=== PATIENT | female | born 1955 | race Two or more races ===

== ENCOUNTER 2021-01-18 14:03 | Inpatient (IN) | payer OTHER ==
[~2021-01-18] VITALS: Ht 162.6 cm; Wt 97.8 kg
[2021-01-18] MEDS ORDERED: cefTRIAXone 1GM/50ML D5W 50 ML IV ONE (14:15)
[2021-01-18] MEDS ORDERED: ACETAMINOPHEN 325 MG TAB PO ONE (14:45)
[2021-01-18 15:21] LABS: Urine Bacteria FEW /hpf (None Seen); Urine Blood TRACE /uL (Negative); Urine Hyaline Cast FEW /lpf (0 - 2); Urine Specific Gravity 1.015 (1.001-1.035); Urine WBC 12 /hpf (0 - 5)
[2021-01-18 15:25] LABS: Basophils # (auto) 0 10 ^3/uL (0-0.2); Basophils % (auto) 0.1 % (0.0-2.0); Eosinophils # (auto) 0 10 ^3/uL (0-0.8); Hematocrit 33.1 % (36.0-46.0); Lymphocytes # (auto) 0.6 10 ^3/uL (0.4-5.4); Lymphocytes % (auto) 10.1 % (10.0-50.0); Mean Corpuscular Hemoglobin 31.3 pg (28.0-32.0); Mean Corpuscular Hgb Conc. 36.2 g/dL (32.0-36.0); Mean Corpuscular Volume 86.4 fL (80.0-100.0); Monocytes # (auto) 0.4 10 ^3/uL (0-1.3); Monocytes % (auto) 7.2 % (0.0-12.0); Neutrophils # (auto) 4.8 10 ^3/uL (1.6-8.6); Neutrophils % (auto) 82.6 % (37.0-80.0); Red Blood Cells 3.83 10^6/uL (4.0-5.20); White Blood Cell 5.9 10^3/uL (4.4-10.8)
[2021-01-18 15:38] LABS: Albumin 2.8 g/dL (3.4-5.0); Anion Gap 6 (5-15); Blood Urea Nitrogen 42 mg/dL (7-18); Carbon Dioxide 25 mmol/L (21-32); Chloride 99 mmol/L (98-107); Glucose 122 mg/dL (74-106); Magnesium 2.4 mg/dL (1.6-2.6); Potassium 4.3 mmol/L (3.5-5.1); Sodium 130 mmol/L (136-145)
[2021-01-18 15:46] LABS: Alanine Aminotransferase 28 U/L (13-56); Alkaline Phosphatase 70 U/L (45-117); Aspartate Aminotransferase 32 U/L (15-37); BUN/Creatinine Ratio 29.6; Bilirubin, Total 0.4 mg/dL (0.2-1.0); GFR African American 48 mL/min; GFR Non-African American 39 mL/min; Total Protein 7.2 g/dL (6.4-8.2)
[2021-01-18] MEDS ORDERED: DexAMETHasone SOD PHOS 10MG/1ML VIAL INJ IV ONE (16:45)
[2021-01-18] MEDS ORDERED: ASCORBIC ACID 500 MG TAB PO ONE (16:45)
[2021-01-18] MEDS ORDERED: ZINC SULFATE 220mg CAP or TAB PO ONE (16:45)
[2021-01-18] MEDS ORDERED: hydrALAZINE HCL 20 MG/ML VL IV PRN (18:30)
[2021-01-18] MEDS ORDERED: SODIUM CHLORIDE 0.9% 500 ML IV ONE (18:30)
[2021-01-18] MEDS ORDERED: ONDANSETRON HCL 4 MG/2 ML VIAL IV PRN (18:30)
[2021-01-18] MEDS ORDERED: NITROGLYCERIN 0.4 MG SL TAB SL PRN (18:30)
[2021-01-18] MEDS ORDERED: DOCUSATE CALCIUM 240 MG CAP PO PRN (18:30)
[2021-01-18] MEDS ORDERED: MORPHINE SULFATE INJECTION 2 MG/ML SYRG IV PRN (18:30)
[2021-01-18] MEDS ORDERED: DEXTROSE (50%) 50ML SYRG IV PRN (18:30)
[2021-01-18] MEDS ORDERED: DOXYCYCLINE 100MG/250ML 250 ML IV SCH (18:45)
[2021-01-18 20:40] VITALS: BP 127/62
[2021-01-18] MEDS: ENOXAPARIN SOD 40 MG/0.4 ML SYRINGE SC SCH (21:22)
[2021-01-18] MEDS ORDERED: INSULIN LANTUS (GLARGINE) 1 /0.01ml (100units/ml) SC SCH (22:00)
[2021-01-18 22:20] VITALS: BP 127/62
[2021-01-18] MEDS: ACCU-CHEK COMFORT CURVE STRIP VI SCH (22:33)
[2021-01-18] MEDS: InsuLIN REG 1unit/0.01ml Soln (100units/ml) SC SCH (22:37)
[2021-01-18] MEDS ORDERED: LORA0.5T20 PO (23:25)
[2021-01-18 23:42] VITALS: BP 130/67
[2021-01-18] MEDS: MORPHINE SULFATE INJECTION 2 MG/ML SYRG IV PRN (23:58)
[2021-01-19] VITALS (15 sets, daily range): BP systolic 109–158; BP diastolic 47–72
[2021-01-19] MEDS: ACETAMINOPHEN 500 MG TAB PO PRN (00:05)
[2021-01-19] MEDS: ACCU-CHEK COMFORT CURVE STRIP VI SCH ×4 (01:12→20:57)
[2021-01-19] MEDS: InsuLIN REG 1unit/0.01ml Soln (100units/ml) SC SCH ×4 (01:15→20:58)
[2021-01-19] MEDS: IPRATROPIUM BROMIDE HFA AER IN SCH ×5 (06:21→22:02)
[2021-01-19] MEDS: BUDESONIDE (INHALATION) 180 MCG IH IN SCH ×3 (06:21→22:02)
[2021-01-19] MEDS: ALBUTEROL SULF HFA 90MCG INH 200DOSE IN PRN ×3 (06:21→22:02)
[2021-01-19 06:30] LABS: Basophils # (auto) 0 10 ^3/uL (0-0.2); Basophils % (auto) 0.3 % (0.0-2.0); Eosinophils # (auto) 0 10 ^3/uL (0-0.8); Hemoglobin 12.8 g/dL (12.2-16.2); Lymphocytes # (auto) 0.5 10 ^3/uL (0.4-5.4); Lymphocytes % (auto) 9.4 % (10.0-50.0); Mean Corpuscular Hemoglobin 30.9 pg (28.0-32.0); Mean Corpuscular Hgb Conc. 34.5 g/dL (32.0-36.0); Mean Corpuscular Volume 89.6 fL (80.0-100.0); Monocytes # (auto) 0.3 10 ^3/uL (0-1.3); Monocytes % (auto) 6.6 % (0.0-12.0); Neutrophils # (auto) 4.4 10 ^3/uL (1.6-8.6); Neutrophils % (auto) 83.7 % (37.0-80.0); Red Blood Cells 4.13 10^6/uL (4.0-5.20); Red Cell Distribution Width 14.3 % (11.8-14.3); White Blood Cell 5.2 10^3/uL (4.4-10.8)
[2021-01-19 06:45] LABS: Albumin 2.8 g/dL (3.4-5.0); BUN/Creatinine Ratio 30.5; Potassium 4.6 mmol/L (3.5-5.1)
[2021-01-19 06:48] LABS: Bilirubin, Total 0.4 mg/dL (0.2-1.0); Total Protein 7.3 g/dL (6.4-8.2)
[2021-01-19 07:26] LABS: INR 0.97 (0.9-1.15)
[2021-01-19] MEDS ORDERED: REMDESIVIR PER PHARMACY 0 ML IV SCH (08:45)
[2021-01-19 08:54] LABS: Magnesium 2.2 mg/dL (1.6-2.6); Phosphorus 2.1 mg/dL (2.5-4.90)
[2021-01-19] MEDS: DOXYCYCLINE 100MG/250ML 250 ML IV SCH ×2 (08:55→20:59)
[2021-01-19] MEDS: guaiFENesin-DM 100/10mg/5ml SYR PO PRN ×3 (08:55→21:02)
[2021-01-19] MEDS ORDERED: InsuLIN REG 1unit/0.01ml Soln (100units/ml) SC SCH (10:00)
[2021-01-19] MEDS ORDERED: ACCU-CHEK COMFORT CURVE STRIP VI SCH (10:00)
[2021-01-19] MEDS ORDERED: metroNIDAZOLE 500 MG TAB PO ONE (10:30)
[2021-01-19] MEDS ORDERED: cefTRIAXone 1GM/50ML D5W 50 ML IV ONE (10:30)
[2021-01-19] MEDS: DexAMETHasone SOD PHOS 10MG/1ML VIAL INJ IV SCH (11:38)
[2021-01-19] MEDS: PANTOPRAZOLE 40 MG TAB PO SCH (11:38)
[2021-01-19] MEDS: TOCILIZUMAB 400 MG in SODIUM CHL 0.9% 80 ML IV SCH (11:38)
[2021-01-19] MEDS: ZINC SULFATE 220mg CAP or TAB PO SCH (11:38)
[2021-01-19] MEDS: CHOLECALCIFEROL (VITD3) 2,000 UNIT CAP/TAB PO SCH (11:39)
[2021-01-19] MEDS: ENOXAPARIN SOD 40 MG/0.4 ML SYRINGE SC SCH ×2 (11:39→21:01)
[2021-01-19] MEDS: ASCORBIC ACID 1,000 MG TAB PO SCH (11:39)
[2021-01-19] MEDS: LORazepam 0.5 MG TAB PO PRN ×2 (11:40→22:51)
[2021-01-19] MEDS ORDERED: INSULIN LANTUS (GLARGINE) 1 /0.01ml (100units/ml) SC ONE (12:15)
[2021-01-19] MEDS ORDERED: REMDESIVIR 200 MG in NS 210ml LOADING DOSE ADULT IV ONE (15:00)
[2021-01-19] MEDS: metroNIDAZOLE 500 MG TAB PO SCH (15:49)
[2021-01-19] MEDS: INSULIN LANTUS (GLARGINE) 1 /0.01ml (100units/ml) SC SCH (21:00)
[2021-01-20] VITALS (28 sets, daily range): BP systolic 94–168; BP diastolic 31–85
[2021-01-20] MEDS: LORazepam 0.5 MG TAB PO PRN ×2 (00:15→17:02)
[2021-01-20] MEDS: InsuLIN REG 1unit/0.01ml Soln (100units/ml) SC SCH ×6 (00:55→20:12)
[2021-01-20] MEDS: metroNIDAZOLE 500 MG TAB PO SCH ×4 (01:26→17:02)
[2021-01-20] MEDS: ACCU-CHEK COMFORT CURVE STRIP VI SCH ×6 (04:00→20:12)
[2021-01-20] MEDS: MORPHINE SULFATE INJECTION 2 MG/ML SYRG IV PRN (04:20)
[2021-01-20 04:31] LABS: Albumin 2.7 g/dL (3.4-5.0); Calcium 8.3 mg/dL (8.5-10.1); Potassium 4.4 mmol/L (3.5-5.1)
[2021-01-20 04:40] LABS: Bilirubin, Total 0.3 mg/dL (0.2-1.0); CRP High Sensitivity 8.07 mg/dL (< 0.3); Total Protein 6.9 g/dL (6.4-8.2)
[2021-01-20] MEDS: INSULIN LANTUS (GLARGINE) 1 /0.01ml (100units/ml) SC SCH ×2 (06:45→22:31)
[2021-01-20] MEDS: BUDESONIDE (INHALATION) 180 MCG IH IN SCH ×3 (06:53→22:03)
[2021-01-20] MEDS: ALBUTEROL SULF HFA 90MCG INH 200DOSE IN PRN ×3 (06:53→22:03)
[2021-01-20] MEDS: IPRATROPIUM BROMIDE HFA AER IN SCH ×4 (06:53→22:02)
[2021-01-20] MEDS: cefTRIAXone 1GM/50ML D5W 50 ML IV SCH (09:24)
[2021-01-20] MEDS: PANTOPRAZOLE 40 MG TAB PO SCH (10:16)
[2021-01-20] MEDS: CHOLECALCIFEROL (VITD3) 2,000 UNIT CAP/TAB PO SCH (10:16)
[2021-01-20] MEDS: ASCORBIC ACID 1,000 MG TAB PO SCH (10:16)
[2021-01-20] MEDS: ZINC SULFATE 220mg CAP or TAB PO SCH (10:16)
[2021-01-20] MEDS: ENOXAPARIN SOD 40 MG/0.4 ML SYRINGE SC SCH ×2 (10:16→22:30)
[2021-01-20] MEDS: DexAMETHasone SOD PHOS 10MG/1ML VIAL INJ IV SCH (10:16)
[2021-01-20] MEDS: DOXYCYCLINE 100MG/250ML 250 ML IV SCH ×2 (10:17→20:27)
[2021-01-20] MEDS ORDERED: ENALAPRILAT 1.25 MG/ML-1ML VIAL IV PRN (10:45)
[2021-01-20] MEDS: TOCILIZUMAB 400 MG in SODIUM CHL 0.9% 80 ML IV SCH (13:15)
[2021-01-20] MEDS: REMDESIVIR 100mg 100 MG in SODIUM CHL 0.9% 230 ML IV SCH (14:57)
[2021-01-20] MEDS: ENALAPRIL MALEATE 2.5 MG TAB PO SCH (21:23)
[2021-01-20] MEDS: guaiFENesin-DM 100/10mg/5ml SYR PO PRN (22:41)
[2021-01-20] MEDS: ACETAMINOPHEN 500 MG TAB PO PRN (22:41)
[2021-01-21] VITALS (25 sets, daily range): BP systolic 90–151; BP diastolic 41–91
[2021-01-21] MEDS: ACCU-CHEK COMFORT CURVE STRIP VI SCH ×6 (00:08→21:00)
[2021-01-21] MEDS: InsuLIN REG 1unit/0.01ml Soln (100units/ml) SC SCH ×6 (00:08→20:59)
[2021-01-21] MEDS: metroNIDAZOLE 500 MG TAB PO SCH ×3 (02:40→18:36)
[2021-01-21] MEDS: LORazepam 0.5 MG TAB PO PRN (03:35)
[2021-01-21 04:35] LABS: Albumin 2.4 g/dL (3.4-5.0); Calcium 7.9 mg/dL (8.5-10.1); Potassium 4.8 mmol/L (3.5-5.1)
[2021-01-21 04:38] LABS: BUN/Creatinine Ratio 41.9
[2021-01-21 04:40] LABS: Bilirubin, Total 0.3 mg/dL (0.2-1.0); Total Protein 6.1 g/dL (6.4-8.2)
[2021-01-21] MEDS: INSULIN LANTUS (GLARGINE) 1 /0.01ml (100units/ml) SC SCH ×2 (06:00→22:24)
[2021-01-21] MEDS: BUDESONIDE (INHALATION) 180 MCG IH IN SCH ×2 (06:22→22:03)
[2021-01-21] MEDS: ALBUTEROL SULF HFA 90MCG INH 200DOSE IN PRN ×3 (06:22→22:03)
[2021-01-21] MEDS: IPRATROPIUM BROMIDE HFA AER IN SCH ×4 (06:22→22:03)
[2021-01-21] MEDS: cefTRIAXone 1GM/50ML D5W 50 ML IV SCH (09:09)
[2021-01-21] MEDS: DOXYCYCLINE 100MG/250ML 250 ML IV SCH ×2 (09:10→21:01)
[2021-01-21] MEDS: ENALAPRIL MALEATE 2.5 MG TAB PO SCH (10:00)
[2021-01-21] MEDS: DexAMETHasone SOD PHOS 10MG/1ML VIAL INJ IV SCH (10:46)
[2021-01-21] MEDS: PANTOPRAZOLE 40 MG TAB PO SCH (10:46)
[2021-01-21] MEDS: ZINC SULFATE 220mg CAP or TAB PO SCH (10:46)
[2021-01-21] MEDS: ENOXAPARIN SOD 40 MG/0.4 ML SYRINGE SC SCH ×2 (10:47→22:25)
[2021-01-21] MEDS: ASCORBIC ACID 1,000 MG TAB PO SCH (10:47)
[2021-01-21] MEDS: CHOLECALCIFEROL (VITD3) 2,000 UNIT CAP/TAB PO SCH (10:48)
[2021-01-21] MEDS: ACETAMINOPHEN 500 MG TAB PO PRN (12:22)
[2021-01-21] MEDS ORDERED: IVERMECTIN 3 MG TAB PO ONE (12:45)
[2021-01-21] MEDS: REMDESIVIR 100mg 100 MG in SODIUM CHL 0.9% 230 ML IV SCH (15:38)
[2021-01-22] VITALS (29 sets, daily range): BP systolic 110–154; BP diastolic 56–83
[2021-01-22] MEDS: ACETAMINOPHEN 500 MG TAB PO PRN ×2 (00:21→16:01)
[2021-01-22] MEDS: LORazepam 0.5 MG TAB PO PRN ×3 (00:21→22:47)
[2021-01-22] MEDS: InsuLIN REG 1unit/0.01ml Soln (100units/ml) SC SCH ×7 (01:24→23:53)
[2021-01-22] MEDS: ACCU-CHEK COMFORT CURVE STRIP VI SCH ×7 (01:24→23:52)
[2021-01-22] MEDS: metroNIDAZOLE 500 MG TAB PO SCH ×3 (01:25→18:15)
[2021-01-22 04:44] LABS: Albumin 2.1 g/dL (3.4-5.0); Calcium 7.2 mg/dL (8.5-10.1); Potassium 4.8 mmol/L (3.5-5.1)
[2021-01-22 04:48] LABS: BUN/Creatinine Ratio 11.2; Bilirubin, Total 0.4 mg/dL (0.2-1.0); Total Protein 6.2 g/dL (6.4-8.2)
[2021-01-22 04:52] LABS: Basophils # (auto) 0 10 ^3/uL (0-0.2); Basophils % (auto) 0.3 % (0.0-2.0); Eosinophils # (auto) 0 10 ^3/uL (0-0.8); Eosinophils % (auto) 0.1 % (0.0-7.0); Hemoglobin 12.6 g/dL (12.2-16.2); Lymphocytes # (auto) 0.9 10 ^3/uL (0.4-5.4); Lymphocytes % (auto) 11.4 % (10.0-50.0); Mean Corpuscular Hgb Conc. 35.2 g/dL (32.0-36.0); Mean Corpuscular Volume 88.1 fL (80.0-100.0); Monocytes # (auto) 0.7 10 ^3/uL (0-1.3); Monocytes % (auto) 8.6 % (0.0-12.0); Neutrophils # (auto) 6.2 10 ^3/uL (1.6-8.6); Neutrophils % (auto) 79.6 % (37.0-80.0); Nucleated Red Blood Cells % 0.1 %; Red Blood Cells 4.08 10^6/uL (4.0-5.20); White Blood Cell 7.8 10^3/uL (4.4-10.8)
[2021-01-22] MEDS: ALBUTEROL SULF HFA 90MCG INH 200DOSE IN PRN ×2 (05:58→22:43)
[2021-01-22] MEDS: IPRATROPIUM BROMIDE HFA AER IN SCH ×4 (05:58→22:43)
[2021-01-22] MEDS: BUDESONIDE (INHALATION) 180 MCG IH IN SCH ×2 (05:58→22:44)
[2021-01-22] MEDS: IVERMECTIN 3 MG TAB PO SCH (06:36)
[2021-01-22] MEDS: INSULIN LANTUS (GLARGINE) 1 /0.01ml (100units/ml) SC SCH ×2 (06:38→21:59)
[2021-01-22] MEDS: cefTRIAXone 1GM/50ML D5W 50 ML IV SCH (08:43)
[2021-01-22] MEDS: DexAMETHasone SOD PHOS 10MG/1ML VIAL INJ IV SCH (09:11)
[2021-01-22] MEDS: DOXYCYCLINE 100MG/250ML 250 ML IV SCH ×2 (09:11→21:27)
[2021-01-22] MEDS: ZINC SULFATE 220mg CAP or TAB PO SCH (09:12)
[2021-01-22] MEDS: PANTOPRAZOLE 40 MG TAB PO SCH (09:12)
[2021-01-22] MEDS: CHOLECALCIFEROL (VITD3) 2,000 UNIT CAP/TAB PO SCH (09:12)
[2021-01-22] MEDS: ASCORBIC ACID 1,000 MG TAB PO SCH (09:12)
[2021-01-22] MEDS: ENOXAPARIN SOD 40 MG/0.4 ML SYRINGE SC SCH ×2 (09:12→21:58)
[2021-01-22] MEDS: REMDESIVIR 100mg 100 MG in SODIUM CHL 0.9% 230 ML IV SCH (14:49)
[2021-01-22] MEDS: LOPERAMIDE HCL 2 MG CAP PO PRN (18:15)
[2021-01-22] MEDS: Glucerna Carbsteady SHAKE Vanilla 8oz PO SCH (18:16)
[2021-01-23] VITALS (27 sets, daily range): BP systolic 107–159; BP diastolic 55–86
[2021-01-23] MEDS: metroNIDAZOLE 500 MG TAB PO SCH ×3 (02:25→17:33)
[2021-01-23] MEDS: ACCU-CHEK COMFORT CURVE STRIP VI SCH ×5 (04:02→19:50)
[2021-01-23] MEDS: InsuLIN REG 1unit/0.01ml Soln (100units/ml) SC SCH ×5 (04:03→19:51)
[2021-01-23 04:33] LABS: Albumin 2.6 g/dL (3.4-5.0); BUN/Creatinine Ratio 34.7; Calcium 8.3 mg/dL (8.5-10.1); Potassium 4.4 mmol/L (3.5-5.1)
[2021-01-23 04:35] LABS: Bilirubin, Total 0.4 mg/dL (0.2-1.0)
[2021-01-23] MEDS: INSULIN LANTUS (GLARGINE) 1 /0.01ml (100units/ml) SC SCH ×2 (06:07→22:31)
[2021-01-23] MEDS: IVERMECTIN 3 MG TAB PO SCH (06:07)
[2021-01-23] MEDS: BUDESONIDE (INHALATION) 180 MCG IH IN SCH ×2 (07:11→19:35)
[2021-01-23] MEDS: IPRATROPIUM BROMIDE HFA AER IN SCH ×4 (07:11→22:59)
[2021-01-23] MEDS: ALBUTEROL SULF HFA 90MCG INH 200DOSE IN PRN ×2 (07:12→19:36)
[2021-01-23] MEDS: Glucerna Carbsteady SHAKE Vanilla 8oz PO SCH ×3 (08:02→17:33)
[2021-01-23] MEDS: cefTRIAXone 1GM/50ML D5W 50 ML IV SCH (08:02)
[2021-01-23] MEDS: DOXYCYCLINE 100MG/250ML 250 ML IV SCH ×2 (08:45→20:09)
[2021-01-23] MEDS: ASCORBIC ACID 1,000 MG TAB PO SCH (09:00)
[2021-01-23] MEDS: ENOXAPARIN SOD 40 MG/0.4 ML SYRINGE SC SCH ×2 (09:00→22:30)
[2021-01-23] MEDS: CHOLECALCIFEROL (VITD3) 2,000 UNIT CAP/TAB PO SCH (09:01)
[2021-01-23] MEDS: ZINC SULFATE 220mg CAP or TAB PO SCH (09:01)
[2021-01-23] MEDS: DexAMETHasone SOD PHOS 10MG/1ML VIAL INJ IV SCH (09:02)
[2021-01-23] MEDS: PANTOPRAZOLE 40 MG TAB PO SCH (09:02)
[2021-01-23] MEDS: REMDESIVIR 100mg 100 MG in SODIUM CHL 0.9% 230 ML IV SCH (15:05)
[2021-01-23] MEDS: LOPERAMIDE HCL 2 MG CAP PO PRN (18:05)
[2021-01-23] MEDS: ACETAMINOPHEN 500 MG TAB PO PRN (18:06)
[2021-01-23] MEDS: guaiFENesin-DM 100/10mg/5ml SYR PO PRN (22:00)
[2021-01-23] MEDS: LORazepam 0.5 MG TAB PO PRN (22:00)
[2021-01-24] VITALS (30 sets, daily range): BP systolic 119–156; BP diastolic 57–78
[2021-01-24] MEDS: metroNIDAZOLE 500 MG TAB PO SCH ×3 (02:17→18:23)
[2021-01-24] MEDS: InsuLIN REG 1unit/0.01ml Soln (100units/ml) SC SCH ×6 (04:00→20:53)
[2021-01-24] MEDS: ACCU-CHEK COMFORT CURVE STRIP VI SCH ×6 (04:39→20:52)
[2021-01-24] MEDS: IVERMECTIN 3 MG TAB PO SCH (06:26)
[2021-01-24] MEDS: ACETAMINOPHEN 500 MG TAB PO PRN (06:27)
[2021-01-24] MEDS: INSULIN LANTUS (GLARGINE) 1 /0.01ml (100units/ml) SC SCH ×2 (06:30→22:35)
[2021-01-24] MEDS: ALBUTEROL SULF HFA 90MCG INH 200DOSE IN PRN (08:44)
[2021-01-24] MEDS: BUDESONIDE (INHALATION) 180 MCG IH IN SCH (08:45)
[2021-01-24] MEDS: IPRATROPIUM BROMIDE HFA AER IN SCH ×3 (08:45→19:34)
[2021-01-24] MEDS: cefTRIAXone 1GM/50ML D5W 50 ML IV SCH (10:24)
[2021-01-24] MEDS: Glucerna Carbsteady SHAKE Vanilla 8oz PO SCH ×3 (10:24→18:23)
[2021-01-24] MEDS: DexAMETHasone SOD PHOS 10MG/1ML VIAL INJ IV SCH (10:25)
[2021-01-24] MEDS: DOXYCYCLINE 100MG/250ML 250 ML IV SCH ×2 (10:25→20:11)
[2021-01-24] MEDS: ZINC SULFATE 220mg CAP or TAB PO SCH (10:26)
[2021-01-24] MEDS: CHOLECALCIFEROL (VITD3) 2,000 UNIT CAP/TAB PO SCH (10:26)
[2021-01-24] MEDS: ASCORBIC ACID 1,000 MG TAB PO SCH (10:26)
[2021-01-24] MEDS: ENOXAPARIN SOD 40 MG/0.4 ML SYRINGE SC SCH ×2 (10:26→22:34)
[2021-01-24] MEDS ORDERED: POTASSIUM CHL 20 Meq TABLET PO ONE (10:45)
[2021-01-24] MEDS ORDERED: FUROSEMIDE 20 MG/2 ML VIAL IV ONE (10:45)
[2021-01-25] VITALS (27 sets, daily range): BP systolic 111–149; BP diastolic 29–74
[2021-01-25] MEDS: ACCU-CHEK COMFORT CURVE STRIP VI SCH ×5 (00:03→17:19)
[2021-01-25] MEDS: InsuLIN REG 1unit/0.01ml Soln (100units/ml) SC SCH ×5 (00:04→17:42)
[2021-01-25] MEDS: LORazepam 0.5 MG TAB PO PRN ×2 (00:05→17:19)
[2021-01-25] MEDS: ACETAMINOPHEN 500 MG TAB PO PRN ×2 (00:32→12:36)
[2021-01-25] MEDS: BUDESONIDE (INHALATION) 180 MCG IH IN SCH ×3 (00:50→18:06)
[2021-01-25] MEDS: IPRATROPIUM BROMIDE HFA AER IN SCH ×4 (00:50→18:06)
[2021-01-25] MEDS: ALBUTEROL SULF HFA 90MCG INH 200DOSE IN PRN ×3 (00:51→18:07)
[2021-01-25] MEDS: metroNIDAZOLE 500 MG TAB PO SCH ×3 (02:07→17:18)
[2021-01-25 05:12] LABS: Potassium 4.8 mmol/L (3.5-5.1)
[2021-01-25] MEDS: IVERMECTIN 3 MG TAB PO SCH (06:03)
[2021-01-25] MEDS: INSULIN LANTUS (GLARGINE) 1 /0.01ml (100units/ml) SC SCH ×2 (06:03→21:50)
[2021-01-25] MEDS: cefTRIAXone 1GM/50ML D5W 50 ML IV SCH (08:00)
[2021-01-25] MEDS: Glucerna Carbsteady SHAKE Vanilla 8oz PO SCH ×3 (08:00→17:19)
[2021-01-25] MEDS: DOXYCYCLINE 100MG/250ML 250 ML IV SCH ×2 (09:00→20:58)
[2021-01-25] MEDS: CHOLECALCIFEROL (VITD3) 2,000 UNIT CAP/TAB PO SCH (10:00)
[2021-01-25] MEDS: ZINC SULFATE 220mg CAP or TAB PO SCH (10:35)
[2021-01-25] MEDS: ASCORBIC ACID 1,000 MG TAB PO SCH (10:35)
[2021-01-25] MEDS: POTASSIUM CHL 20 Meq TABLET PO SCH (10:36)
[2021-01-25] MEDS: ENOXAPARIN SOD 40 MG/0.4 ML SYRINGE SC SCH ×2 (10:37→21:49)
[2021-01-25] MEDS: FUROSEMIDE 20 MG/2 ML VIAL IV SCH (10:37)
[2021-01-25] MEDS: DexAMETHasone SOD PHOS 10MG/1ML VIAL INJ IV SCH (10:37)
[2021-01-25] MEDS: LOPERAMIDE HCL 2 MG CAP PO PRN ×3 (12:35→17:26)
[2021-01-25] MEDS ORDERED: DEXTROSE (50%) 50ML SYRG IV PRN (13:00)
[2021-01-25] MEDS: traMADol HCL 50 MG TAB PO PRN (17:18)
[2021-01-26] VITALS (28 sets, daily range): BP systolic 116–159; BP diastolic 48–81
[2021-01-26] MEDS: LORazepam 0.5 MG TAB PO PRN ×2 (00:03→22:49)
[2021-01-26] MEDS: LOPERAMIDE HCL 2 MG CAP PO PRN (00:04)
[2021-01-26] MEDS: ACCU-CHEK COMFORT CURVE STRIP VI SCH ×4 (00:04→18:17)
[2021-01-26] MEDS: InsuLIN REG 1unit/0.01ml Soln (100units/ml) SC SCH ×4 (00:05→18:21)
[2021-01-26] MEDS: metroNIDAZOLE 500 MG TAB PO SCH ×2 (01:28→10:16)
[2021-01-26] MEDS: IPRATROPIUM BROMIDE HFA AER IN SCH ×5 (01:49→22:26)
[2021-01-26 05:03] LABS: Calcium 8.5 mg/dL (8.5-10.1); Potassium 4.7 mmol/L (3.5-5.1)
[2021-01-26 05:06] LABS: BUN/Creatinine Ratio 38.7
[2021-01-26] MEDS: INSULIN LANTUS (GLARGINE) 1 /0.01ml (100units/ml) SC SCH ×2 (06:13→22:49)
[2021-01-26] MEDS: ALBUTEROL SULF HFA 90MCG INH 200DOSE IN PRN ×4 (06:45→22:26)
[2021-01-26] MEDS: BUDESONIDE (INHALATION) 180 MCG IH IN SCH ×2 (06:45→19:05)
[2021-01-26] MEDS: cefTRIAXone 1GM/50ML D5W 50 ML IV SCH (08:19)
[2021-01-26] MEDS: Glucerna Carbsteady SHAKE Vanilla 8oz PO SCH ×3 (09:15→18:24)
[2021-01-26] MEDS: DOXYCYCLINE 100MG/250ML 250 ML IV SCH (09:16)
[2021-01-26] MEDS: DexAMETHasone SOD PHOS 10MG/1ML VIAL INJ IV SCH (10:15)
[2021-01-26] MEDS: FUROSEMIDE 20 MG/2 ML VIAL IV SCH ×2 (10:16→18:24)
[2021-01-26] MEDS: ZINC SULFATE 220mg CAP or TAB PO SCH (10:16)
[2021-01-26] MEDS: POTASSIUM CHL 20 Meq TABLET PO SCH (10:16)
[2021-01-26] MEDS: ASCORBIC ACID 1,000 MG TAB PO SCH (10:16)
[2021-01-26] MEDS: CHOLECALCIFEROL (VITD3) 2,000 UNIT CAP/TAB PO SCH (10:17)
[2021-01-26] MEDS: ENOXAPARIN SOD 40 MG/0.4 ML SYRINGE SC SCH ×2 (10:17→22:49)
[2021-01-26] MEDS: ACETAMINOPHEN 500 MG TAB PO PRN ×2 (11:52→22:50)
[2021-01-26] MEDS: POTASSIUM CHL 10 Meq TABLET PO SCH (22:48)
[2021-01-26] MEDS: guaiFENesin-DM 100/10mg/5ml SYR PO PRN (22:50)
[2021-01-27] VITALS (26 sets, daily range): BP systolic 106–148; BP diastolic 45–77
[2021-01-27] MEDS: InsuLIN REG 1unit/0.01ml Soln (100units/ml) SC SCH ×5 (02:32→23:00)
[2021-01-27 04:42] LABS: Potassium 4.8 mmol/L (3.5-5.1)
[2021-01-27 04:49] LABS: Albumin 2.5 g/dL (3.4-5.0); BUN/Creatinine Ratio 39.1; Bilirubin, Total 0.5 mg/dL (0.2-1.0); Calcium 8.8 mg/dL (8.5-10.1); Total Protein 6.3 g/dL (6.4-8.2)
[2021-01-27] MEDS: ACCU-CHEK COMFORT CURVE STRIP VI SCH ×5 (05:48→23:00)
[2021-01-27] MEDS: FUROSEMIDE 20 MG/2 ML VIAL IV SCH ×2 (06:48→19:00)
[2021-01-27] MEDS: INSULIN LANTUS (GLARGINE) 1 /0.01ml (100units/ml) SC SCH ×2 (06:58→21:50)
[2021-01-27] MEDS: BUDESONIDE (INHALATION) 180 MCG IH IN SCH ×2 (07:20→23:22)
[2021-01-27] MEDS: ALBUTEROL SULF HFA 90MCG INH 200DOSE IN PRN ×3 (07:20→23:23)
[2021-01-27] MEDS: IPRATROPIUM BROMIDE HFA AER IN SCH ×4 (07:20→23:23)
[2021-01-27] MEDS: POTASSIUM CHL 10 Meq TABLET PO SCH ×2 (10:19→21:48)
[2021-01-27] MEDS: Glucerna Carbsteady SHAKE Vanilla 8oz PO SCH ×3 (10:19→18:00)
[2021-01-27] MEDS: DexAMETHasone SOD PHOS 10MG/1ML VIAL INJ IV SCH (10:19)
[2021-01-27] MEDS: ASCORBIC ACID 1,000 MG TAB PO SCH (10:19)
[2021-01-27] MEDS: ZINC SULFATE 220mg CAP or TAB PO SCH (10:19)
[2021-01-27] MEDS: ENOXAPARIN SOD 40 MG/0.4 ML SYRINGE SC SCH ×2 (10:20→21:48)
[2021-01-27] MEDS: CHOLECALCIFEROL (VITD3) 2,000 UNIT CAP/TAB PO SCH (10:20)
[2021-01-27] MEDS ORDERED: DEXTROSE (50%) 50ML SYRG IV PRN (10:30)
[2021-01-27] MEDS: ACETAMINOPHEN 500 MG TAB PO PRN (15:26)
[2021-01-28] VITALS (26 sets, daily range): BP systolic 104–160; BP diastolic 53–78
[2021-01-28 04:51] LABS: Hemoglobin 13.8 g/dL (12.2-16.2); Mean Corpuscular Hemoglobin 30.7 pg (28.0-32.0); Mean Corpuscular Hgb Conc. 34.5 g/dL (32.0-36.0); Mean Corpuscular Volume 88.9 fL (80.0-100.0); White Blood Cell 10.8 10^3/uL (4.4-10.8)
[2021-01-28 05:08] LABS: Potassium 4.8 mmol/L (3.5-5.1)
[2021-01-28 05:11] LABS: Basophils % (manual) 0 (0.0-2.0); Blast Cells 0; Eosinophils % (manual) 0 (0-7); Metamyelocytes % 0; Myelocytes % 0; Promyelocytes % 0; Reactive Lymphocytes 0
[2021-01-28 05:14] LABS: Albumin 2.4 g/dL (3.4-5.0); Calcium 8.6 mg/dL (8.5-10.1)
[2021-01-28 05:26] LABS: Bilirubin, Total 0.5 mg/dL (0.2-1.0); Total Protein 6.3 g/dL (6.4-8.2)
[2021-01-28] MEDS: FUROSEMIDE 20 MG/2 ML VIAL IV SCH ×2 (05:27→08:08)
[2021-01-28] MEDS: ACCU-CHEK COMFORT CURVE STRIP VI SCH ×4 (05:28→23:02)
[2021-01-28] MEDS: InsuLIN REG 1unit/0.01ml Soln (100units/ml) SC SCH ×4 (05:28→23:02)
[2021-01-28] MEDS: ACETAMINOPHEN 500 MG TAB PO PRN (05:52)
[2021-01-28] MEDS: ALBUTEROL SULF HFA 90MCG INH 200DOSE IN PRN ×4 (06:30→21:46)
[2021-01-28] MEDS: IPRATROPIUM BROMIDE HFA AER IN SCH ×4 (06:30→21:46)
[2021-01-28] MEDS: BUDESONIDE (INHALATION) 180 MCG IH IN SCH ×2 (06:30→18:56)
[2021-01-28] MEDS: traMADol HCL 50 MG TAB PO PRN (06:31)
[2021-01-28] MEDS: INSULIN LANTUS (GLARGINE) 1 /0.01ml (100units/ml) SC SCH ×2 (06:33→21:06)
[2021-01-28 06:56] LABS: Band Neutrophils % (manual) 10; Lymphocytes % (manual) 7 (10.0-50.0); Monocytes % (manual) 7 (0-12)
[2021-01-28] MEDS: Glucerna Carbsteady SHAKE Vanilla 8oz PO SCH ×3 (08:00→18:00)
[2021-01-28] MEDS: DexAMETHasone SOD PHOS 10MG/1ML VIAL INJ IV SCH (08:08)
[2021-01-28] MEDS: ENOXAPARIN SOD 40 MG/0.4 ML SYRINGE SC SCH ×2 (08:08→21:05)
[2021-01-28] MEDS: CHOLECALCIFEROL (VITD3) 2,000 UNIT CAP/TAB PO SCH (08:08)
[2021-01-28] MEDS: ZINC SULFATE 220mg CAP or TAB PO SCH (08:08)
[2021-01-28] MEDS: ASCORBIC ACID 1,000 MG TAB PO SCH (08:08)
[2021-01-28] MEDS: POTASSIUM CHL 10 Meq TABLET PO SCH (08:10)
[2021-01-28] MEDS: LORazepam 0.5 MG TAB PO PRN ×2 (11:50→21:07)
[2021-01-28] MEDS ORDERED: CALCIUM CARB 500 MG CHEW TAB PO PRN (15:00)
[2021-01-28] MEDS ORDERED: PANTOPRAZOLE 40 MG/10 ML VIAL INJ IV ONE (15:30)
[2021-01-28] MEDS ORDERED: SALINE 0.65 % NASAL SPRAY 45ML BOTTLE EACHNOSTRI ONE (15:30)
[2021-01-28] MEDS: SALINE 0.65 % NASAL SPRAY 45ML BOTTLE EACHNOSTRI SCH (21:04)
[2021-01-29] VITALS (26 sets, daily range): BP systolic 101–147; BP diastolic 43–112
[2021-01-29 04:48] LABS: BUN/Creatinine Ratio 46.8; Calcium 9.1 mg/dL (8.5-10.1); Potassium 5.1 mmol/L (3.5-5.1)
[2021-01-29] MEDS: SALINE 0.65 % NASAL SPRAY 45ML BOTTLE EACHNOSTRI SCH ×4 (05:22→21:00)
[2021-01-29] MEDS: ACCU-CHEK COMFORT CURVE STRIP VI SCH ×4 (05:23→23:37)
[2021-01-29] MEDS: InsuLIN REG 1unit/0.01ml Soln (100units/ml) SC SCH ×4 (05:24→23:37)
[2021-01-29] MEDS: INSULIN LANTUS (GLARGINE) 1 /0.01ml (100units/ml) SC SCH ×2 (06:11→21:01)
[2021-01-29] MEDS: ALBUTEROL SULF HFA 90MCG INH 200DOSE IN PRN ×3 (06:44→19:35)
[2021-01-29] MEDS: BUDESONIDE (INHALATION) 180 MCG IH IN SCH ×2 (06:44→19:35)
[2021-01-29] MEDS: IPRATROPIUM BROMIDE HFA AER IN SCH ×4 (06:44→22:42)
[2021-01-29] MEDS: Glucerna Carbsteady SHAKE Vanilla 8oz PO SCH ×3 (08:00→18:00)
[2021-01-29] MEDS: PANTOPRAZOLE 40 MG/10 ML VIAL INJ IV SCH (09:38)
[2021-01-29] MEDS: ASCORBIC ACID 1,000 MG TAB PO SCH (09:38)
[2021-01-29] MEDS: ZINC SULFATE 220mg CAP or TAB PO SCH (09:39)
[2021-01-29] MEDS: CHOLECALCIFEROL (VITD3) 2,000 UNIT CAP/TAB PO SCH (09:39)
[2021-01-29] MEDS: ENOXAPARIN SOD 40 MG/0.4 ML SYRINGE SC SCH ×2 (09:39→21:01)
[2021-01-29] MEDS: POTASSIUM CHL 10 Meq TABLET PO SCH (09:40)
[2021-01-29] MEDS: DexAMETHasone SOD PHOS 10MG/1ML VIAL INJ IV SCH (09:40)
[2021-01-29] MEDS: LOPERAMIDE HCL 2 MG CAP PO PRN (09:42)
[2021-01-29] MEDS ORDERED: FUROSEMIDE 20 MG/2 ML VIAL IV SCH (10:00)
[2021-01-29] MEDS: guaiFENesin-DM 100/10mg/5ml SYR PO PRN (21:37)
[2021-01-29] MEDS: LORazepam 0.5 MG TAB PO PRN (22:04)
[2021-01-30] VITALS (29 sets, daily range): BP systolic 105–156; BP diastolic 49–86
[2021-01-30 04:17] LABS: Basophils # (auto) 0 10 ^3/uL (0-0.2); Basophils % (auto) 0.1 % (0.0-2.0); Eosinophils # (auto) 0 10 ^3/uL (0-0.8); Eosinophils % (auto) 0.4 % (0.0-7.0); Hematocrit 38.9 % (36.0-46.0); Hemoglobin 13.4 g/dL (12.2-16.2); Lymphocytes # (auto) 0.5 10 ^3/uL (0.4-5.4); Lymphocytes % (auto) 4.9 % (10.0-50.0); Mean Corpuscular Hemoglobin 30.6 pg (28.0-32.0); Mean Corpuscular Hgb Conc. 34.5 g/dL (32.0-36.0); Mean Corpuscular Volume 88.9 fL (80.0-100.0); Monocytes # (auto) 0.5 10 ^3/uL (0-1.3); Monocytes % (auto) 4.1 % (0.0-12.0); Neutrophils # (auto) 10.1 10 ^3/uL (1.6-8.6); Neutrophils % (auto) 90.5 % (37.0-80.0); Red Blood Cells 4.38 10^6/uL (4.0-5.20); Red Cell Distribution Width 14.4 % (11.8-14.3); White Blood Cell 11.1 10^3/uL (4.4-10.8)
[2021-01-30 04:33] LABS: BUN/Creatinine Ratio 37.3; Calcium 8.8 mg/dL (8.5-10.1); Potassium 4.7 mmol/L (3.5-5.1)
[2021-01-30] MEDS: InsuLIN REG 1unit/0.01ml Soln (100units/ml) SC SCH ×3 (05:16→17:56)
[2021-01-30] MEDS: ACCU-CHEK COMFORT CURVE STRIP VI SCH ×3 (05:16→17:56)
[2021-01-30] MEDS: SALINE 0.65 % NASAL SPRAY 45ML BOTTLE EACHNOSTRI SCH ×4 (05:16→21:57)
[2021-01-30] MEDS: BUDESONIDE (INHALATION) 180 MCG IH IN SCH ×2 (06:08→23:04)
[2021-01-30] MEDS: ALBUTEROL SULF HFA 90MCG INH 200DOSE IN PRN ×2 (06:08→23:04)
[2021-01-30] MEDS: IPRATROPIUM BROMIDE HFA AER IN SCH ×4 (06:09→23:03)
[2021-01-30] MEDS: INSULIN LANTUS (GLARGINE) 1 /0.01ml (100units/ml) SC SCH ×2 (06:13→22:00)
[2021-01-30] MEDS: Glucerna Carbsteady SHAKE Vanilla 8oz PO SCH ×3 (07:35→15:18)
[2021-01-30] MEDS: PANTOPRAZOLE 40 MG/10 ML VIAL INJ IV SCH (08:42)
[2021-01-30] MEDS: DexAMETHasone SOD PHOS 10MG/1ML VIAL INJ IV SCH (08:42)
[2021-01-30] MEDS: ASCORBIC ACID 1,000 MG TAB PO SCH (08:43)
[2021-01-30] MEDS: ENOXAPARIN SOD 40 MG/0.4 ML SYRINGE SC SCH (08:43)
[2021-01-30] MEDS: ZINC SULFATE 220mg CAP or TAB PO SCH (08:43)
[2021-01-30] MEDS: CHOLECALCIFEROL (VITD3) 2,000 UNIT CAP/TAB PO SCH (08:43)
[2021-01-30] MEDS: POTASSIUM CHL 10 Meq TABLET PO SCH (08:43)
[2021-01-30] MEDS: LORazepam 0.5 MG TAB PO PRN ×2 (08:44→23:48)
[2021-01-30] MEDS ORDERED: LORazepam 0.5 MG TAB PO PRN (15:00)
[2021-01-30] MEDS ORDERED: FUROSEMIDE 20 MG/2 ML VIAL IV ONE (15:00)
[2021-01-30] MEDS ORDERED: FUROSEMIDE 20 MG/2 ML VIAL ONE (15:01)
[2021-01-30] MEDS: LINEZOLID 600MG/300ML 300 ML IV SCH (21:56)
[2021-01-30] MEDS: ENOXAPARIN SOD 100 MG/1 ML SYRINGE SC SCH (21:57)
[2021-01-31] VITALS (24 sets, daily range): BP systolic 94–152; BP diastolic 45–91
[2021-01-31] MEDS: ACCU-CHEK COMFORT CURVE STRIP VI SCH ×4 (00:04→18:00)
[2021-01-31] MEDS: InsuLIN REG 1unit/0.01ml Soln (100units/ml) SC SCH ×4 (00:08→18:00)
[2021-01-31] MEDS: SALINE 0.65 % NASAL SPRAY 45ML BOTTLE EACHNOSTRI SCH ×4 (06:19→22:00)
[2021-01-31] MEDS: INSULIN LANTUS (GLARGINE) 1 /0.01ml (100units/ml) SC SCH ×2 (06:24→22:40)
[2021-01-31] MEDS: ALBUTEROL SULF HFA 90MCG INH 200DOSE IN PRN (07:10)
[2021-01-31] MEDS: IPRATROPIUM BROMIDE HFA AER IN SCH ×3 (07:10→13:50)
[2021-01-31] MEDS: BUDESONIDE (INHALATION) 180 MCG IH IN SCH (07:10)
[2021-01-31] MEDS: Glucerna Carbsteady SHAKE Vanilla 8oz PO SCH ×3 (08:20→18:00)
[2021-01-31] MEDS: LINEZOLID 600MG/300ML 300 ML IV SCH ×2 (10:00→22:26)
[2021-01-31] MEDS: DexAMETHasone SOD PHOS 10MG/1ML VIAL INJ IV SCH (10:05)
[2021-01-31] MEDS: ENOXAPARIN SOD 100 MG/1 ML SYRINGE SC SCH ×2 (10:06→22:26)
[2021-01-31] MEDS: ASCORBIC ACID 1,000 MG TAB PO SCH (10:06)
[2021-01-31] MEDS: POTASSIUM CHL 10 Meq TABLET PO SCH (10:06)
[2021-01-31] MEDS: ZINC SULFATE 220mg CAP or TAB PO SCH (10:06)
[2021-01-31] MEDS: PANTOPRAZOLE 40 MG/10 ML VIAL INJ IV SCH (10:06)
[2021-01-31] MEDS: CHOLECALCIFEROL (VITD3) 2,000 UNIT CAP/TAB PO SCH (10:06)
[2021-01-31] MEDS: guaiFENesin-DM 100/10mg/5ml SYR PO PRN ×2 (13:41→20:40)
[2021-01-31] MEDS: LOPERAMIDE HCL 2 MG CAP PO PRN (18:00)
[2021-02-01] VITALS (28 sets, daily range): BP systolic 91–145; BP diastolic 57–89
[2021-02-01] MEDS: IPRATROPIUM BROMIDE HFA AER IN SCH ×5 (00:26→22:20)
[2021-02-01] MEDS: BUDESONIDE (INHALATION) 180 MCG IH IN SCH ×3 (00:26→22:20)
[2021-02-01] MEDS: guaiFENesin-DM 100/10mg/5ml SYR PO PRN ×3 (04:48→22:13)
[2021-02-01] MEDS: ACETAMINOPHEN 500 MG TAB PO PRN (04:49)
[2021-02-01 04:58] LABS: Basophils # (auto) 0 10 ^3/uL (0-0.2); Basophils % (auto) 0.1 % (0.0-2.0); Eosinophils # (auto) 0.1 10 ^3/uL (0-0.8); Eosinophils % (auto) 0.9 % (0.0-7.0); Hematocrit 41.7 % (36.0-46.0); Hemoglobin 14.3 g/dL (12.2-16.2); Lymphocytes # (auto) 0.5 10 ^3/uL (0.4-5.4); Lymphocytes % (auto) 4.3 % (10.0-50.0); Mean Corpuscular Hemoglobin 30.6 pg (28.0-32.0); Mean Corpuscular Hgb Conc. 34.3 g/dL (32.0-36.0); Mean Corpuscular Volume 89.2 fL (80.0-100.0); Monocytes # (auto) 0.4 10 ^3/uL (0-1.3); Monocytes % (auto) 3.6 % (0.0-12.0); Neutrophils % (auto) 91.1 % (37.0-80.0); Red Blood Cells 4.68 10^6/uL (4.0-5.20); Red Cell Distribution Width 14.8 % (11.8-14.3); White Blood Cell 10.9 10^3/uL (4.4-10.8)
[2021-02-01 05:17] LABS: Potassium 4.5 mmol/L (3.5-5.1)
[2021-02-01 05:32] LABS: Albumin 2.6 g/dL (3.4-5.0); BUN/Creatinine Ratio 55.6; Bilirubin, Total 0.6 mg/dL (0.2-1.0); Calcium 8.9 mg/dL (8.5-10.1); Total Protein 6.7 g/dL (6.4-8.2)
[2021-02-01] MEDS: SALINE 0.65 % NASAL SPRAY 45ML BOTTLE EACHNOSTRI SCH ×4 (06:00→22:00)
[2021-02-01] MEDS: ALBUTEROL SULF HFA 90MCG INH 200DOSE IN PRN (06:07)
[2021-02-01] MEDS: ACCU-CHEK COMFORT CURVE STRIP VI SCH ×5 (06:44→23:46)
[2021-02-01] MEDS: INSULIN LANTUS (GLARGINE) 1 /0.01ml (100units/ml) SC SCH ×2 (06:45→22:40)
[2021-02-01] MEDS: InsuLIN REG 1unit/0.01ml Soln (100units/ml) SC SCH ×5 (06:45→23:46)
[2021-02-01] MEDS: Glucerna Carbsteady SHAKE Vanilla 8oz PO SCH ×3 (08:30→18:30)
[2021-02-01] MEDS: ENOXAPARIN SOD 100 MG/1 ML SYRINGE SC SCH ×2 (10:00→22:25)
[2021-02-01] MEDS: ASCORBIC ACID 1,000 MG TAB PO SCH (10:00)
[2021-02-01] MEDS: ZINC SULFATE 220mg CAP or TAB PO SCH (10:00)
[2021-02-01] MEDS: POTASSIUM CHL 10 Meq TABLET PO SCH (10:00)
[2021-02-01] MEDS: LINEZOLID 600MG/300ML 300 ML IV SCH (10:00)
[2021-02-01] MEDS: PANTOPRAZOLE 40 MG/10 ML VIAL INJ IV SCH (10:00)
[2021-02-01] MEDS: DexAMETHasone SOD PHOS 10MG/1ML VIAL INJ IV SCH (10:00)
[2021-02-01] MEDS: CHOLECALCIFEROL (VITD3) 2,000 UNIT CAP/TAB PO SCH (12:00)
[2021-02-01] MEDS ORDERED: IBUPROFEN 400 MG TAB PO PRN (12:00)
[2021-02-01] MEDS ORDERED: IBUPROFEN 800 MG TAB PO ONE (12:48)
[2021-02-01] MEDS: LORazepam 0.5 MG TAB PO PRN (16:06)
[2021-02-01] MEDS: MEROPENEM 1GM IVPB 100 ML IV SCH ×2 (16:08→23:46)
[2021-02-02] VITALS (22 sets, daily range): BP systolic 110–146; BP diastolic 59–84
[2021-02-02 04:43] LABS: Basophils # (auto) 0 10 ^3/uL (0-0.2); Basophils % (auto) 0.2 % (0.0-2.0); Eosinophils # (auto) 0 10 ^3/uL (0-0.8); Eosinophils % (auto) 0.2 % (0.0-7.0); Hematocrit 39.6 % (36.0-46.0); Lymphocytes # (auto) 0.5 10 ^3/uL (0.4-5.4); Lymphocytes % (auto) 5.7 % (10.0-50.0); Mean Corpuscular Hgb Conc. 35.4 g/dL (32.0-36.0); Mean Corpuscular Volume 87.6 fL (80.0-100.0); Monocytes # (auto) 0.3 10 ^3/uL (0-1.3); Monocytes % (auto) 3.6 % (0.0-12.0); Neutrophils # (auto) 7.1 10 ^3/uL (1.6-8.6); Neutrophils % (auto) 90.3 % (37.0-80.0); Red Blood Cells 4.52 10^6/uL (4.0-5.20); Red Cell Distribution Width 14.4 % (11.8-14.3); White Blood Cell 7.9 10^3/uL (4.4-10.8)
[2021-02-02 04:59] LABS: Potassium 4.8 mmol/L (3.5-5.1)
[2021-02-02 05:07] LABS: Albumin 2.3 g/dL (3.4-5.0); Bilirubin, Total 0.7 mg/dL (0.2-1.0); Calcium 8.7 mg/dL (8.5-10.1); Total Protein 6.5 g/dL (6.4-8.2)
[2021-02-02] MEDS: SALINE 0.65 % NASAL SPRAY 45ML BOTTLE EACHNOSTRI SCH ×4 (05:58→21:39)
[2021-02-02] MEDS: ACCU-CHEK COMFORT CURVE STRIP VI SCH ×4 (05:59→23:24)
[2021-02-02] MEDS: InsuLIN REG 1unit/0.01ml Soln (100units/ml) SC SCH ×4 (05:59→23:25)
[2021-02-02] MEDS: INSULIN LANTUS (GLARGINE) 1 /0.01ml (100units/ml) SC SCH ×2 (05:59→21:40)
[2021-02-02] MEDS: MEROPENEM 1GM IVPB 100 ML IV SCH ×3 (06:00→23:24)
[2021-02-02] MEDS: ALBUTEROL SULF HFA 90MCG INH 200DOSE IN PRN ×2 (06:51→12:16)
[2021-02-02] MEDS: IPRATROPIUM BROMIDE HFA AER IN SCH ×4 (06:53→21:47)
[2021-02-02] MEDS: BUDESONIDE (INHALATION) 180 MCG IH IN SCH ×2 (06:55→21:47)
[2021-02-02] MEDS: CHOLECALCIFEROL (VITD3) 2,000 UNIT CAP/TAB PO SCH (08:29)
[2021-02-02] MEDS: ASCORBIC ACID 1,000 MG TAB PO SCH (08:30)
[2021-02-02] MEDS: ZINC SULFATE 220mg CAP or TAB PO SCH (08:30)
[2021-02-02] MEDS: POTASSIUM CHL 10 Meq TABLET PO SCH (08:31)
[2021-02-02] MEDS: PANTOPRAZOLE 40 MG/10 ML VIAL INJ IV SCH (08:33)
[2021-02-02] MEDS: ENOXAPARIN SOD 100 MG/1 ML SYRINGE SC SCH ×2 (08:37→21:39)
[2021-02-02] MEDS: DexAMETHasone SOD PHOS 10MG/1ML VIAL INJ IV SCH (08:39)
[2021-02-02] MEDS: Glucerna Carbsteady SHAKE Vanilla 8oz PO SCH ×3 (08:40→18:57)
[2021-02-02] MEDS: guaiFENesin-DM 100/10mg/5ml SYR PO PRN ×3 (10:32→23:26)
[2021-02-03] VITALS (25 sets, daily range): BP systolic 110–148; BP diastolic 49–81
[2021-02-03] MEDS: ACCU-CHEK COMFORT CURVE STRIP VI SCH ×4 (05:52→23:09)
[2021-02-03] MEDS: INSULIN LANTUS (GLARGINE) 1 /0.01ml (100units/ml) SC SCH ×2 (05:52→21:51)
[2021-02-03] MEDS: InsuLIN REG 1unit/0.01ml Soln (100units/ml) SC SCH ×4 (05:52→23:11)
[2021-02-03] MEDS: SALINE 0.65 % NASAL SPRAY 45ML BOTTLE EACHNOSTRI SCH ×4 (05:52→21:48)
[2021-02-03] MEDS: MEROPENEM 1GM IVPB 100 ML IV SCH ×3 (05:53→23:03)
[2021-02-03] MEDS: guaiFENesin-DM 100/10mg/5ml SYR PO PRN ×4 (05:53→22:22)
[2021-02-03] MEDS: ALBUTEROL SULF HFA 90MCG INH 200DOSE IN PRN ×3 (07:11→21:58)
[2021-02-03] MEDS: BUDESONIDE (INHALATION) 180 MCG IH IN SCH ×2 (07:12→21:58)
[2021-02-03] MEDS: IPRATROPIUM BROMIDE HFA AER IN SCH ×4 (07:12→21:58)
[2021-02-03] MEDS: CHOLECALCIFEROL (VITD3) 2,000 UNIT CAP/TAB PO SCH (08:31)
[2021-02-03] MEDS: PANTOPRAZOLE 40 MG/10 ML VIAL INJ IV SCH (08:32)
[2021-02-03] MEDS: ZINC SULFATE 220mg CAP or TAB PO SCH (08:32)
[2021-02-03] MEDS: DexAMETHasone SOD PHOS 10MG/1ML VIAL INJ IV SCH (08:32)
[2021-02-03] MEDS: POTASSIUM CHL 10 Meq TABLET PO SCH (08:33)
[2021-02-03] MEDS: ENOXAPARIN SOD 100 MG/1 ML SYRINGE SC SCH ×2 (08:34→21:53)
[2021-02-03] MEDS: ASCORBIC ACID 1,000 MG TAB PO SCH (08:34)
[2021-02-03] MEDS: Glucerna Carbsteady SHAKE Vanilla 8oz PO SCH ×3 (08:45→18:38)
[2021-02-04] VITALS (24 sets, daily range): BP systolic 105–170; BP diastolic 63–84
[2021-02-04] MEDS: LORazepam 0.5 MG TAB PO PRN ×2 (02:54→22:26)
[2021-02-04] MEDS: ALBUTEROL SULF HFA 90MCG INH 200DOSE IN PRN ×5 (03:12→22:12)
[2021-02-04] MEDS: SALINE 0.65 % NASAL SPRAY 45ML BOTTLE EACHNOSTRI SCH ×4 (06:05→22:24)
[2021-02-04] MEDS: ACCU-CHEK COMFORT CURVE STRIP VI SCH ×3 (06:06→18:08)
[2021-02-04] MEDS: MEROPENEM 1GM IVPB 100 ML IV SCH ×3 (06:06→22:25)
[2021-02-04] MEDS: InsuLIN REG 1unit/0.01ml Soln (100units/ml) SC SCH ×3 (06:07→18:00)
[2021-02-04] MEDS: BUDESONIDE (INHALATION) 180 MCG IH IN SCH ×2 (06:19→19:11)
[2021-02-04] MEDS: IPRATROPIUM BROMIDE HFA AER IN SCH ×4 (06:20→22:11)
[2021-02-04] MEDS: INSULIN LANTUS (GLARGINE) 1 /0.01ml (100units/ml) SC SCH ×2 (07:00→22:25)
[2021-02-04] MEDS: guaiFENesin-DM 100/10mg/5ml SYR PO PRN ×4 (08:41→22:19)
[2021-02-04] MEDS: CHOLECALCIFEROL (VITD3) 2,000 UNIT CAP/TAB PO SCH (08:41)
[2021-02-04] MEDS: PANTOPRAZOLE 40 MG/10 ML VIAL INJ IV SCH (08:42)
[2021-02-04] MEDS: ASCORBIC ACID 1,000 MG TAB PO SCH (08:42)
[2021-02-04] MEDS: ZINC SULFATE 220mg CAP or TAB PO SCH (08:42)
[2021-02-04] MEDS: DexAMETHasone SOD PHOS 10MG/1ML VIAL INJ IV SCH (08:43)
[2021-02-04] MEDS: POTASSIUM CHL 10 Meq TABLET PO SCH (08:43)
[2021-02-04] MEDS: Glucerna Carbsteady SHAKE Vanilla 8oz PO SCH ×3 (08:44→18:08)
[2021-02-04 08:52] LABS: Basophils # (auto) 0 10 ^3/uL (0-0.2); Basophils % (auto) 0.3 % (0.0-2.0); Eosinophils # (auto) 0 10 ^3/uL (0-0.8); Eosinophils % (auto) 0.4 % (0.0-7.0); Hematocrit 42.3 % (36.0-46.0); Hemoglobin 14.5 g/dL (12.2-16.2); Lymphocytes # (auto) 0.9 10 ^3/uL (0.4-5.4); Lymphocytes % (auto) 7.8 % (10.0-50.0); Mean Corpuscular Hemoglobin 30.7 pg (28.0-32.0); Mean Corpuscular Hgb Conc. 34.2 g/dL (32.0-36.0); Mean Corpuscular Volume 89.8 fL (80.0-100.0); Monocytes # (auto) 0.5 10 ^3/uL (0-1.3); Monocytes % (auto) 4.3 % (0.0-12.0); Neutrophils # (auto) 9.7 10 ^3/uL (1.6-8.6); Neutrophils % (auto) 87.2 % (37.0-80.0); Nucleated Red Blood Cells % 0.1 %; Red Blood Cells 4.72 10^6/uL (4.0-5.20); White Blood Cell 11.1 10^3/uL (4.4-10.8)
[2021-02-04 09:05] LABS: Albumin 2.6 g/dL (3.4-5.0); BUN/Creatinine Ratio 66.3; Calcium 8.9 mg/dL (8.5-10.1); Potassium 4.9 mmol/L (3.5-5.1)
[2021-02-04 09:07] LABS: Bilirubin, Total 0.7 mg/dL (0.2-1.0); Total Protein 6.6 g/dL (6.4-8.2)
[2021-02-04] MEDS: ENOXAPARIN SOD 100 MG/1 ML SYRINGE SC SCH ×2 (11:15→22:25)
[2021-02-04] MEDS ORDERED: FUROSEMIDE 20 MG/2 ML VIAL IV ONE (14:15)
[2021-02-04] MEDS ORDERED: POTASSIUM CHL 20 Meq TABLET PO ONE (14:15)
[2021-02-05] VITALS (29 sets, daily range): BP systolic 105–157; BP diastolic 52–81
[2021-02-05] MEDS: ACCU-CHEK COMFORT CURVE STRIP VI SCH ×4 (05:52→18:15)
[2021-02-05] MEDS: SALINE 0.65 % NASAL SPRAY 45ML BOTTLE EACHNOSTRI SCH ×4 (05:53→22:18)
[2021-02-05] MEDS: InsuLIN REG 1unit/0.01ml Soln (100units/ml) SC SCH ×4 (05:53→18:15)
[2021-02-05] MEDS: MEROPENEM 1GM IVPB 100 ML IV SCH ×3 (06:10→22:18)
[2021-02-05] MEDS: INSULIN LANTUS (GLARGINE) 1 /0.01ml (100units/ml) SC SCH ×2 (06:11→22:19)
[2021-02-05] MEDS: ALBUTEROL SULF HFA 90MCG INH 200DOSE IN PRN ×2 (07:38→22:48)
[2021-02-05] MEDS: BUDESONIDE (INHALATION) 180 MCG IH IN SCH ×2 (07:39→22:48)
[2021-02-05] MEDS: IPRATROPIUM BROMIDE HFA AER IN SCH ×4 (07:39→22:48)
[2021-02-05] MEDS: Glucerna Carbsteady SHAKE Vanilla 8oz PO SCH ×3 (08:15→18:29)
[2021-02-05] MEDS: ZINC SULFATE 220mg CAP or TAB PO SCH (09:49)
[2021-02-05] MEDS: DexAMETHasone SOD PHOS 10MG/1ML VIAL INJ IV SCH (09:49)
[2021-02-05] MEDS: ENOXAPARIN SOD 100 MG/1 ML SYRINGE SC SCH ×2 (09:49→22:18)
[2021-02-05] MEDS: CHOLECALCIFEROL (VITD3) 2,000 UNIT CAP/TAB PO SCH (09:49)
[2021-02-05] MEDS: ASCORBIC ACID 1,000 MG TAB PO SCH (09:49)
[2021-02-05] MEDS: PANTOPRAZOLE 40 MG/10 ML VIAL INJ IV SCH (09:49)
[2021-02-05] MEDS: POTASSIUM CHL 10 Meq TABLET PO SCH (09:50)
[2021-02-05] MEDS ORDERED: POTASSIUM CHL 20 Meq TABLET PO ONE (14:15)
[2021-02-05] MEDS ORDERED: FUROSEMIDE 20 MG/2 ML VIAL IV ONE (14:15)
[2021-02-05] MEDS: guaiFENesin-DM 100/10mg/5ml SYR PO PRN (21:27)
[2021-02-05] MEDS: LOPERAMIDE HCL 2 MG CAP PO PRN (21:27)
[2021-02-06] VITALS (29 sets, daily range): BP systolic 98–173; BP diastolic 59–87
[2021-02-06] MEDS: SALINE 0.65 % NASAL SPRAY 45ML BOTTLE EACHNOSTRI SCH ×4 (05:57→21:40)
[2021-02-06] MEDS: ACCU-CHEK COMFORT CURVE STRIP VI SCH ×5 (05:58→23:37)
[2021-02-06] MEDS: InsuLIN REG 1unit/0.01ml Soln (100units/ml) SC SCH ×4 (05:58→18:30)
[2021-02-06] MEDS: INSULIN LANTUS (GLARGINE) 1 /0.01ml (100units/ml) SC SCH ×2 (05:59→21:41)
[2021-02-06] MEDS: MEROPENEM 1GM IVPB 100 ML IV SCH ×3 (06:17→21:56)
[2021-02-06] MEDS: ALBUTEROL SULF HFA 90MCG INH 200DOSE IN PRN (06:31)
[2021-02-06] MEDS: IPRATROPIUM BROMIDE HFA AER IN SCH ×4 (06:31→23:47)
[2021-02-06] MEDS: BUDESONIDE (INHALATION) 180 MCG IH IN SCH ×2 (06:31→23:47)
[2021-02-06] MEDS: Glucerna Carbsteady SHAKE Vanilla 8oz PO SCH ×3 (08:20→18:30)
[2021-02-06] MEDS: PANTOPRAZOLE 40 MG/10 ML VIAL INJ IV SCH (09:51)
[2021-02-06] MEDS: ENOXAPARIN SOD 100 MG/1 ML SYRINGE SC SCH ×2 (09:51→21:41)
[2021-02-06] MEDS: ZINC SULFATE 220mg CAP or TAB PO SCH (09:51)
[2021-02-06] MEDS: CHOLECALCIFEROL (VITD3) 2,000 UNIT CAP/TAB PO SCH (09:51)
[2021-02-06] MEDS: DexAMETHasone SOD PHOS 10MG/1ML VIAL INJ IV SCH (09:52)
[2021-02-06] MEDS: POTASSIUM CHL 10 Meq TABLET PO SCH (09:52)
[2021-02-06] MEDS: ASCORBIC ACID 1,000 MG TAB PO SCH (09:52)
[2021-02-06] MEDS: guaiFENesin-DM 100/10mg/5ml SYR PO PRN ×2 (10:15→22:30)
[2021-02-06] MEDS: LOPERAMIDE HCL 2 MG CAP PO PRN (21:42)
[2021-02-06] MEDS: hydrALAZINE HCL 20 MG/ML VL IV PRN (21:42)
[2021-02-07] VITALS (29 sets, daily range): BP systolic 91–164; BP diastolic 47–89
[2021-02-07] MEDS: LOPERAMIDE HCL 2 MG CAP PO PRN (01:28)
[2021-02-07] MEDS: IPRATROPIUM BROMIDE HFA AER IN SCH ×5 (05:57→22:00)
[2021-02-07] MEDS: BUDESONIDE (INHALATION) 180 MCG IH IN SCH ×2 (05:57→22:00)
[2021-02-07] MEDS: ALBUTEROL SULF HFA 90MCG INH 200DOSE IN PRN (05:57)
[2021-02-07] MEDS: SALINE 0.65 % NASAL SPRAY 45ML BOTTLE EACHNOSTRI SCH ×4 (06:00→22:15)
[2021-02-07] MEDS: InsuLIN REG 1unit/0.01ml Soln (100units/ml) SC SCH ×4 (06:00→18:11)
[2021-02-07] MEDS: ACCU-CHEK COMFORT CURVE STRIP VI SCH ×3 (06:27→18:10)
[2021-02-07] MEDS: INSULIN LANTUS (GLARGINE) 1 /0.01ml (100units/ml) SC SCH ×2 (06:29→22:16)
[2021-02-07] MEDS: MEROPENEM 1GM IVPB 100 ML IV SCH ×3 (06:30→22:54)
[2021-02-07 07:25] LABS: Basophils # (auto) 0.1 10 ^3/uL (0-0.2); Basophils % (auto) 0.5 % (0.0-2.0); Eosinophils # (auto) 0.1 10 ^3/uL (0-0.8); Eosinophils % (auto) 1.1 % (0.0-7.0); Hematocrit 41.2 % (36.0-46.0); Hemoglobin 14.1 g/dL (12.2-16.2); Lymphocytes # (auto) 1.4 10 ^3/uL (0.4-5.4); Lymphocytes % (auto) 11.8 % (10.0-50.0); Mean Corpuscular Hemoglobin 30.6 pg (28.0-32.0); Mean Corpuscular Hgb Conc. 34.3 g/dL (32.0-36.0); Mean Corpuscular Volume 89.1 fL (80.0-100.0); Monocytes # (auto) 0.4 10 ^3/uL (0-1.3); Monocytes % (auto) 3.1 % (0.0-12.0); Neutrophils # (auto) 9.7 10 ^3/uL (1.6-8.6); Neutrophils % (auto) 83.5 % (37.0-80.0); Nucleated Red Blood Cells % 0.1 %; Red Blood Cells 4.63 10^6/uL (4.0-5.20); Red Cell Distribution Width 14.9 % (11.8-14.3); White Blood Cell 11.6 10^3/uL (4.4-10.8)
[2021-02-07 07:44] LABS: BUN/Creatinine Ratio 70.8; Calcium 8.7 mg/dL (8.5-10.1); Potassium 4.1 mmol/L (3.5-5.1)
[2021-02-07] MEDS: Glucerna Carbsteady SHAKE Vanilla 8oz PO SCH ×3 (08:00→17:45)
[2021-02-07] MEDS: DexAMETHasone SOD PHOS 10MG/1ML VIAL INJ IV SCH (10:19)
[2021-02-07] MEDS: PANTOPRAZOLE 40 MG/10 ML VIAL INJ IV SCH (10:19)
[2021-02-07] MEDS: ZINC SULFATE 220mg CAP or TAB PO SCH (10:20)
[2021-02-07] MEDS: ASCORBIC ACID 1,000 MG TAB PO SCH (10:20)
[2021-02-07] MEDS: POTASSIUM CHL 10 Meq TABLET PO SCH (10:20)
[2021-02-07] MEDS: CHOLECALCIFEROL (VITD3) 2,000 UNIT CAP/TAB PO SCH (10:20)
[2021-02-07] MEDS ORDERED: ENOXAPARIN SOD 120 MG/0.8 ML SYRINGE SC SCH (10:28)
[2021-02-07] MEDS ORDERED: LORazepam 2MG/ML-1ML VIAL IV PRN (15:30)
[2021-02-07] MEDS: ENOXAPARIN SOD 100 MG/1 ML SYRINGE SC SCH (22:16)
[2021-02-08] VITALS (26 sets, daily range): BP systolic 95–146; BP diastolic 44–79
[2021-02-08] MEDS: InsuLIN REG 1unit/0.01ml Soln (100units/ml) SC SCH ×6 (05:27→23:50)
[2021-02-08] MEDS: SALINE 0.65 % NASAL SPRAY 45ML BOTTLE EACHNOSTRI SCH ×4 (05:27→21:51)
[2021-02-08] MEDS: ACCU-CHEK COMFORT CURVE STRIP VI SCH ×7 (05:27→23:50)
[2021-02-08] MEDS: INSULIN LANTUS (GLARGINE) 1 /0.01ml (100units/ml) SC SCH (06:23)
[2021-02-08] MEDS: MEROPENEM 1GM IVPB 100 ML IV SCH ×3 (06:34→23:04)
[2021-02-08] MEDS: Glucerna Carbsteady SHAKE Vanilla 8oz PO SCH ×3 (08:02→17:43)
[2021-02-08] MEDS: BUDESONIDE (INHALATION) 180 MCG IH IN SCH ×2 (10:00→22:15)
[2021-02-08] MEDS: CHOLECALCIFEROL (VITD3) 2,000 UNIT CAP/TAB PO SCH (10:00)
[2021-02-08] MEDS: ENOXAPARIN SOD 100 MG/1 ML SYRINGE SC SCH ×2 (10:00→21:51)
[2021-02-08] MEDS: ZINC SULFATE 220mg CAP or TAB PO SCH (10:00)
[2021-02-08] MEDS: ASCORBIC ACID 1,000 MG TAB PO SCH (10:00)
[2021-02-08] MEDS: DexAMETHasone SOD PHOS 10MG/1ML VIAL INJ IV SCH (10:24)
[2021-02-08] MEDS: PANTOPRAZOLE 40 MG/10 ML VIAL INJ IV SCH (10:24)
[2021-02-08] MEDS ORDERED: DEXTROSE (50%) 50ML SYRG IV PRN (12:00)
[2021-02-08] MEDS: IPRATROPIUM BROMIDE HFA AER IN SCH ×4 (15:21→22:14)
[2021-02-08] MEDS: ALBUTEROL SULF HFA 90MCG INH 200DOSE IN PRN (15:22)
[2021-02-08] MEDS: LORazepam 2MG/ML-1ML VIAL IV PRN ×2 (17:43→21:51)
[2021-02-08] MEDS: guaiFENesin-DM 100/10mg/5ml SYR PO PRN (23:51)
[2021-02-08] MEDS: LOPERAMIDE HCL 2 MG CAP PO PRN (23:51)
[2021-02-09] VITALS (23 sets, daily range): BP systolic 80–151; BP diastolic 43–117
[2021-02-09] MEDS: LORazepam 2MG/ML-1ML VIAL IV PRN ×3 (02:20→15:40)
[2021-02-09] MEDS: InsuLIN REG 1unit/0.01ml Soln (100units/ml) SC SCH ×4 (04:00→21:53)
[2021-02-09] MEDS: ACCU-CHEK COMFORT CURVE STRIP VI SCH ×4 (04:14→21:53)
[2021-02-09] MEDS: BUDESONIDE (INHALATION) 180 MCG IH IN SCH (05:40)
[2021-02-09] MEDS: ALBUTEROL SULF HFA 90MCG INH 200DOSE IN PRN (05:40)
[2021-02-09] MEDS: IPRATROPIUM BROMIDE HFA AER IN SCH ×2 (05:40→12:00)
[2021-02-09] MEDS: SALINE 0.65 % NASAL SPRAY 45ML BOTTLE EACHNOSTRI SCH ×4 (05:51→21:52)
[2021-02-09] MEDS: guaiFENesin-DM 100/10mg/5ml SYR PO PRN (05:58)
[2021-02-09] MEDS: MEROPENEM 1GM IVPB 100 ML IV SCH ×3 (06:43→22:48)
[2021-02-09] MEDS: Glucerna Carbsteady SHAKE Vanilla 8oz PO SCH ×3 (08:11→17:08)
[2021-02-09] MEDS: ENOXAPARIN SOD 100 MG/1 ML SYRINGE SC SCH ×2 (08:12→21:53)
[2021-02-09] MEDS: PANTOPRAZOLE 40 MG/10 ML VIAL INJ IV SCH (08:12)
[2021-02-09] MEDS: DexAMETHasone SOD PHOS 10MG/1ML VIAL INJ IV SCH (08:12)
[2021-02-09] MEDS ORDERED: FUROSEMIDE 20 MG/2 ML VIAL IV ONE (09:45)
[2021-02-09] MEDS: ZINC SULFATE 220mg CAP or TAB PO SCH (10:00)
[2021-02-09] MEDS: ASCORBIC ACID 1,000 MG TAB PO SCH (10:00)
[2021-02-09] MEDS: CHOLECALCIFEROL (VITD3) 2,000 UNIT CAP/TAB PO SCH (10:00)
[2021-02-09 13:14] LABS: Hematocrit 41.3 % (36.0-46.0); Mean Corpuscular Hemoglobin 30.6 pg (28.0-32.0); Mean Corpuscular Hgb Conc. 33.9 g/dL (32.0-36.0); Mean Corpuscular Volume 90.4 fL (80.0-100.0); Red Blood Cells 4.57 10^6/uL (4.0-5.20); Red Cell Distribution Width 15.1 % (11.8-14.3); White Blood Cell 13.5 10^3/uL (4.4-10.8)
[2021-02-09 13:16] LABS: Band Neutrophils % (manual) 0; Basophils % (manual) 0 (0.0-2.0); Blast Cells 0; Eosinophils % (manual) 0 (0-7); Myelocytes % 0; Promyelocytes % 0; Reactive Lymphocytes 0
[2021-02-09 13:18] LABS: Albumin 2.1 g/dL (3.4-5.0); Calcium 8.7 mg/dL (8.5-10.1); Magnesium 3.1 mg/dL (1.6-2.6)
[2021-02-09 13:23] LABS: BUN/Creatinine Ratio 62.2; Bilirubin, Total 0.7 mg/dL (0.2-1.0)
[2021-02-09] MEDS: MORPHINE SULFATE INJECTION 2 MG/ML SYRG IV PRN (13:27)
[2021-02-09 13:41] LABS: Lymphocytes % (manual) 3 (10.0-50.0); Metamyelocytes % 1; Monocytes % (manual) 1 (0-12)
[2021-02-10] VITALS (27 sets, daily range): BP systolic 82–153; BP diastolic 58–147
[2021-02-10] MEDS ORDERED: ACETAMINOPHEN 650 mg PER 20.3 mL UD PO PRN (02:15)
[2021-02-10] MEDS: guaiFENesin-DM 100/10mg/5ml SYR PO PRN (02:32)
[2021-02-10] MEDS: ACCU-CHEK COMFORT CURVE STRIP VI SCH ×3 (05:47→22:09)
[2021-02-10] MEDS: SALINE 0.65 % NASAL SPRAY 45ML BOTTLE EACHNOSTRI SCH ×4 (05:47→22:08)
[2021-02-10] MEDS: InsuLIN REG 1unit/0.01ml Soln (100units/ml) SC SCH ×3 (05:48→22:08)
[2021-02-10] MEDS: MEROPENEM 1GM IVPB 100 ML IV SCH ×3 (06:30→23:17)
[2021-02-10] MEDS: LORazepam 2MG/ML-1ML VIAL IV PRN ×4 (07:35→23:40)
[2021-02-10] MEDS: Glucerna Carbsteady SHAKE Vanilla 8oz PO SCH ×3 (08:00→18:00)
[2021-02-10] MEDS: ASCORBIC ACID 1,000 MG TAB PO SCH (10:00)
[2021-02-10] MEDS: ZINC SULFATE 220mg CAP or TAB PO SCH (10:00)
[2021-02-10] MEDS: CHOLECALCIFEROL (VITD3) 2,000 UNIT CAP/TAB PO SCH (10:00)
[2021-02-10] MEDS: DexAMETHasone SOD PHOS 10MG/1ML VIAL INJ IV SCH (11:11)
[2021-02-10] MEDS: PANTOPRAZOLE 40 MG/10 ML VIAL INJ IV SCH (11:11)
[2021-02-10] MEDS: ENOXAPARIN SOD 100 MG/1 ML SYRINGE SC SCH ×2 (11:12→22:09)
[2021-02-10] MEDS: MORPHINE SULFATE INJECTION 2 MG/ML SYRG IV PRN ×2 (13:38→20:30)
[2021-02-11] VITALS (11 sets, daily range): BP systolic 123–179; BP diastolic 66–88
[2021-02-11] MEDS: IPRATROPIUM BROMIDE HFA AER IN SCH (05:50)
[2021-02-11] MEDS: BUDESONIDE (INHALATION) 180 MCG IH IN SCH (05:50)
[2021-02-11] MEDS: SALINE 0.65 % NASAL SPRAY 45ML BOTTLE EACHNOSTRI SCH (06:13)
[2021-02-11] MEDS: hydrALAZINE HCL 20 MG/ML VL IV PRN (06:20)
[2021-02-11] MEDS: ACCU-CHEK COMFORT CURVE STRIP VI SCH (06:21)
[2021-02-11] MEDS: InsuLIN REG 1unit/0.01ml Soln (100units/ml) SC SCH (06:21)
[2021-02-11] MEDS: Glucerna Carbsteady SHAKE Vanilla 8oz PO SCH (07:53)
[2021-02-11] MEDS: MEROPENEM 1GM IVPB 100 ML IV SCH (07:53)
[2021-02-11] MEDS: LORazepam 2MG/ML-1ML VIAL IV PRN (08:00)
[2021-02-11 10:27] LABS: Anion Gap 9 (5-15); Blood Urea Nitrogen 68 mg/dL (7-18); Carbon Dioxide 22 mmol/L (21-32); Chloride 112 mmol/L (98-107); GFR African American 86 mL/min; GFR Non-African American 71 mL/min; Glucose 292 mg/dL (74-106); Potassium 4.8 mmol/L (3.5-5.1); Sodium 143 mmol/L (136-145)
[2021-02-11 10:28] LABS: Calcium 8.9 mg/dL (8.5-10.1)
== END 2021-02-11 15:14 | DRG 871 ==
LOC: EDBD 14:03 → ER 14:03 → TELE-EAST 18:18 → ICU WEST 01-19 12:53
PROVIDERS: ADMIT Family Medicine; ATTEND Internal Medicine
PROC: XW033E5 Introduction of Remdesivir Anti-infective into Peripheral Vein, Percutaneous Approach, New Technology Group 5 (ICD-10-PCS; 2021-01-19)
PROC: XW033H5 Introduction of Tocilizumab into Peripheral Vein, Percutaneous Approach, New Technology Group 5 (ICD-10-PCS; 2021-01-19)
PROC: 05HB33Z Insertion of Infusion Device into Right Basilic Vein, Percutaneous Approach (ICD-10-PCS; principal; 2021-01-21)
PROC: B54MZZA Ultrasonography of Right Upper Extremity Veins, Guidance (ICD-10-PCS; 2021-01-21)
PROC: 5A09357 Assistance with Respiratory Ventilation, Less than 24 Consecutive Hours, Continuous Positive Airway Pressure (ICD-10-PCS; 2021-02-09)
DX: A41.89 Other specified sepsis (principal); U07.1 COVID-19; J12.82 Pneumonia due to coronavirus disease 2019; J96.01 Acute respiratory failure with hypoxia; E87.1 Hypo-osmolality and hyponatremia; N39.0 Urinary tract infection, site not specified; Z68.41 Body mass index [BMI] 40.0-44.9, adult; N17.9 Acute kidney failure, unspecified; Z66 Do not resuscitate; D89.839 Cytokine release syndrome, grade unspecified; E11.21 Type 2 diabetes mellitus with diabetic nephropathy; E83.51 Hypocalcemia; N18.30 Chronic kidney disease, stage 3 unspecified; F41.9 Anxiety disorder, unspecified; E66.01 Morbid (severe) obesity due to excess calories; D63.8 Anemia in other chronic diseases classified elsewhere; E11.22 Type 2 diabetes mellitus with diabetic chronic kidney disease; I12.9 Hypertensive chronic kidney disease with stage 1 through stage 4 chronic kidney disease, or unspecified chronic kidney disease; Z88.5 Allergy status to narcotic agent; Z88.0 Allergy status to penicillin; Z88.8 Allergy status to other drugs, medicaments and biological substances
CPT/HCPCS: 36415; 36600; 71045; 80048; 80053; 81001; 82306; 82728; 82805; 82962; 83036; 83605; 83615; 83735; 83880; 84100; 84443; 84484; 85007; 85025; 85027; 85379; 85610; 86141; 87040; 87070; 87205; 87426; 93005; 93970; 94640; 94660; 96365; 96375; A4615; C9113; G0378; J0696; J1100; J1815; J2185; J3490